=== PATIENT | female | born 1995 | race Caucasian/White ===

== ENCOUNTER 2023-07-21 08:21 | Emergency (ER) | payer MEDICAID ==
[~2023-07-21] VITALS: Ht 160 cm; Wt 90.7 kg
[2023-07-21 08:39] VITALS: BP_SYST 138; PULSE 81; RESP 20; TEMP 98.1; O2SAT 98
[2023-07-21] MEDS ORDERED: DEXAMETHASONE SOD PHOSPHATE 10 MG/ML VIAL PO ONE (09:00)
[2023-07-21] MEDS ORDERED: LIDOCAINE VISCOUS 2%, 15 ML UDC MM ONE (09:00)
[2023-07-21] MEDS ORDERED: AZITHROMYCIN 250 MG TABLET PO ONE (09:30)
[2023-07-21] MEDS ORDERED: ZIT250 PO (09:41)
[2023-07-21] MEDS ORDERED: IBUP-2018 PO (09:43)
[2023-07-21] MEDS ORDERED: BENZ1LOZ73 PO (09:43)
[2023-07-21 09:54] VITALS: BP_SYST 119; PULSE 80; RESP 17; TEMP 97.7; O2SAT 97
== END 2023-07-21 09:53 | disposition home or self-care (01) ==
LOC: SED 08:21
DX: J02.9 Acute pharyngitis, unspecified (principal); I10 Essential (primary) hypertension; Z88.0 Allergy status to penicillin; Z79.899 Other long term (current) drug therapy; Z20.822 Contact with and (suspected) exposure to COVID-19
CPT/HCPCS: 99283; 87426; 86403; 36415; 81025; 87081; J2001; J1100; Q0144

== ENCOUNTER 2024-03-04 07:10 | Emergency (ER) | payer MEDICAID ==
[~2024-03-04] VITALS: Ht 160 cm; Wt 72.6 kg
[~2024-03-04 07:10] MED LIST: BENZ1LOZ73 PO; IBUP-2018 PO; ZIT250 PO
[2024-03-04 07:12] VITALS: BP_SYST 146; PULSE 105; RESP 22; TEMP 96.5; O2SAT 93
[2024-03-04] MEDS: predniSONE 20 MG TABLET PO ONE (07:28)
[2024-03-04] MEDS: IPRATROPIUM/ALBUTEROL SULFATE 3 ML AMPUL.NEB (DUONEB) INH ONE (07:41)
[2024-03-04 08:04] VITALS: BP_SYST 138; PULSE 98; RESP 21; TEMP 98.3; O2SAT 93
[2024-03-04] MEDS ORDERED: AZIT500T PO (08:08)
[2024-03-04] MEDS ORDERED: METH-776 PO (08:08)
[2024-03-04] MEDS ORDERED: ALBMDI INH (08:08)
== END 2024-03-04 08:23 | disposition home or self-care (01) ==
LOC: SED 07:10
DX: J45.909 Unspecified asthma, uncomplicated (principal); Z88.0 Allergy status to penicillin; Z79.899 Other long term (current) drug therapy; Z79.2 Long term (current) use of antibiotics
CPT/HCPCS: 99283; 94640; J7512